=== PATIENT | female | born 1970 | race Caucasian/White ===

== ENCOUNTER 2017-01-18 13:09 | Emergency (ER) | payer OTHER ==
[~2017-01-18] VITALS: Ht 152.4 cm; Wt 62.0 kg
[~2017-01-18 13:09] MED LIST: ALPR1TAB2 PO; BUTA1CAP39 PO; CIPR500T4 PO; DIAZ-90 PO; HYDR-3720 PO; IBUP-1542 PO; MECL25TA2 PO; ONDA8TAB14 PO; PRED20TA PO
[2017-01-18 13:16] VITALS: Ht 152.4 cm; Wt 62.0 kg
[2017-01-18 13:57] LABS: URINE BLOOD (Dip) POC 1+ (NEGATIVE)
[2017-01-18] MEDS ORDERED: IBUPROFEN 600 MG TAB PO ONE (14:00)
[2017-01-18] MEDS ORDERED: ACETAMINOPHEN/CODEINE #3 TAB PO ONE (14:00)
[2017-01-18] MEDS ORDERED: CEPHALEXIN 500 MG CAP PO ONE (14:30)
[2017-01-18] MEDS ORDERED: HYDROCODONE/APAP (5/325) TAB PO ONE (14:30)
[2017-01-18] MEDS ORDERED: PHENAZOPYRIDINE 100 MG TAB PO ONE (14:30)
[2017-01-18] MEDS ORDERED: CEFTRIAXONE 500 MG INJ IM ONE (15:00)
[2017-01-18] MEDS ORDERED: LIDOCAINE 1% (MDV) 20 ML INJ SC ONE (15:00)
--- NOTE | 2017-01-18 15:36 | RADRPT ---
PROCEDURE: CT Abdomen and Pelvis without contrast. CLINICAL INDICATION: Abdominal and pelvic pain TECHNIQUE: CT scan of the abdomen and pelvis without contrast was performed without intravenous co ntrast. Coronal and sagittal reformatted images were obtained from the axial source images. Images were reviewed on a high-resolution PACS workstation. CTDI 7 mGy, DLP 388 mGy-cm One or more of the following dose reduction techniques were used: Automated exposure control Adjustment of the mA and/or kV according to patient size. Use of iterative reconstruction technique. COMPARISON: 01/24/2015 FINDINGS: There is minimal scarring within the right middle lobe anteriorly. Minimal bibasilar atelectasis is present. The lung bases are otherwise clear. The heart size is normal. There are pacer leads wit hin the region of the right atrium and right ventricle. The heart size is normal. The aorta and its branches are normal in size and caliber. Mild atherosclerotic calcifications are v isualized within the iliac arteries. There are several nonobstructive calculi within the superior and inferior poles of both kidneys norman uring up to 2 - 3 mm similar to the prior study. There is no hydronephrosis or perinephric fat stra nding. The kidneys are normal in size. There is a 1-2 mm focus of calcification within the right lo wer pelvis which may be within the right distal ureter near the ureterovesical junction on axial james ge 138 series 3 which is not visualized on the prior study. The distal portion of the right ureter is difficult to define. There are also several phleboliths within the pelvis which are visualized on the prior study. The left ureter is normal in course and caliber. Evaluation of solid organs is limited due to the lack of intravenous contrast. The liver is unremark able. The gallbladder, spleen, adrenal glands, and pancreas are unremarkable. The distal esophagus and stomach are unremarkable. The small bowel loops are normal in caliber with out evidence of small bowel obstruction. Stool is noted throughout the colon. There are also a few diverticula within the descending colon without evidence for diverticulitis. A mildly prominent ga s-filled appendix is again noted without surrounding fat stranding or fluid. There is no free intrap eritoneal fluid or pneumoperitoneum. There is no mesenteric, retroperitoneal, or pelvic lymphadenopathy. The bladder is distended, but grossly unremarkable. The uterus is not visualized from prior hysterec maris. The bilateral adnexa are unremarkable. There is no pelvic free fluid. There are no acute fractures. There is minimal left convex curvature of the lumbar spine. There ar e small cysts within the pubic bones at the pubic symphysis. RPTAT: ZZ IMPRESSION: 1. Several bilateral 2-3 mm nonobstructive renal calculi similar to the prior study without hydrone phrosis. 2. Punctate 1-2 mm calcification within the right lower pelvis which may be within the right distal ureter near the ureterovesical junction versus a new small phlebolith. No significant hydroureter. 3. Similar appearance of the mild gas-filled distension of the appendix without evidence for acute appendicitis. 4. Mild diverticulosis without evidence for diverticulitis. 5. Non-visualized uterus from prior hysterectomy. .Xiomara Mccrary MD, MD Date Time Electronically viewed and signed by .Xiomara Mccrary MD, on 01/18/2017 15:36 .T/
[2017-01-18] MEDS ORDERED: ACET1TAB40 PO (15:46)
[2017-01-18] MEDS ORDERED: PHEN-538 PO (15:46)
[2017-01-18] MEDS ORDERED: CEPH-443 PO (15:46)
--- NOTE | 2017-01-18 15:50 | ERD ---
ER Documentation Chief Complaint Date/Time DATE: 01/18/17 TIME: 15:48 Chief Complaint dysuria x 2 days; lower pelvic pain HPI This 46-year-old female complains of dysuria for last 2 days as well as suprapubic pelvic pain patient has right or left-sided abdominal pain. He denies any fevers, vomiting, flank pain ROS All systems reviewed and are negative except as per history of present illness. Medications Home Meds Active Scripts Acetaminophen with Codeine (Acetaminophen-Cod #3 Tablet) 1 Each Tablet, 1 TAB PO Q6H Y for PAIN, #7 TAB Prov:JEWELL SAPP MD 01/18/17 Phenazopyridine Hcl* (Pyridium*) 200 Mg Tab, 200 MG PO TID Y for URINARY PAIN, # 6 TAB Prov:JEWELL SAPP MD 01/18/17 Cephalexin* (Keflex*) 500 Mg Capsule, 500 MG PO QID for 5 Days, CAP Prov:JEWELL SAPP MD 01/18/17 Prednisone* (Prednisone*) 20 Mg Tab, 40 MG PO DAILY for 4 Days, TAB Prov:BRICE ENG PA-C 09/17/16 Ondansetron (Ondansetron Odt) 8 Mg Tab.rapdis, 8 MG PO Q6H Y for NAUSEA AND/OR VOMITING, #8 TAB Prov:JEWELL SAPP MD 06/16/16 Ibuprofen* (Motrin*) 600 Mg Tab, 600 MG PO Q6, #16 TAB Prov:JEWELL SAPP MD 06/16/16 Ciprofloxacin Hcl* (Ciprofloxacin Hcl*) 500 Mg Tablet, 500 MG PO BID for 7 Days , TAB Prov:JEWELL SAPP MD 06/16/16 Alprazolam* (Xanax*) 1 Mg Tab, 1 MG PO Q8H Y for ANXIETY, #20 TAB Prov:FARIDA DUNHAM NP 05/20/16 Qttwzibfenafo-Urlkvvoorc-Rnehwsym-Codeine* (Fioricet w/ Codeine*) [id number]- 30MG Capsule, 1 CAP PO Q6H Y for PAIN LEVEL 1-5, #20 CAP Prov:FARIDA DUNHAM NP 05/20/16 Diazepam* (Valium*) 5 Mg Tablet, 5 MG PO Q8 for dizzy, #10 TAB Prov:ARLINE RODRIGUEZ. DO 04/10/16 Hydrocodone Bit-Acetaminophen* (Esko*) 7.5-325 Tablet, 1 TAB PO Q4H Y for PAIN , #20 TAB Prov:ARLINE RODRIGUEZ. DO 04/10/16 Meclizine Hcl* (Antivert*) 25 Mg Tablet, 25 MG PO Q6H Y for DIZZINESS, #20 TAB Prov:ARLINE RODRIGUEZ A. DO 04/10/16 Reported Medications Ibuprofen* (Ibuprofen*) 600 Mg Tablet, 600 MG PO Q6H, TAB 04/10/16 Allergies Allergies: Coded Allergies: No Known Drug Allergies (Verified Allergy, Mild, 04/10/16) PMhx/Soc History of Surgery: Yes (Brain tumor removal, TABHSO, Pacemaker) Anesthesia Reaction: No Hx Neurological Disorder: No Hx Respiratory Disorders: No Hx Cardiac Disorders: Yes (Arrhythmia) Hx Psychiatric Problems: No Hx Miscellaneous Medical Probl: No Hx Alcohol Use: No Hx Substance Use: No Hx Tobacco Use: No Physical Exam Vitals Vital Signs Date Time Temp Pulse Resp B/P Pulse Ox O2 Delivery O2 Flow Rate FiO2 01/18/17 13:16 97.9 85 18 121/74 98 Physical Exam Const: [] Alert, uncomfortable due to pain Head: Atraumatic Eyes: Normal Conjunctiva ENT: Normal External Ears, Nose and Mouth. Neck: Full range of motion..~ No meningismus. Resp: Clear to auscultation bilaterally Cardio: Regular rate and rhythm, no murmurs Abd: Soft, mild suprapubic tenderness without tenderness at McBurney's point no Doe sign no rebound non distended. Normal bowel sounds Skin: No petechiae or rashes Back: No midline or flank tenderness Ext: No cyanosis, or edema Neur: Awake and alert Psych: Normal Mood and Affect Results 24 hrs Laboratory Tests Test 01/18/17 13:57 Bedside Urine pH (LAB) 5.5 Bedside Urine Protein (LAB) Negative Bedside Urine Glucose (UA) Negative Bedside Urine Ketones (LAB) Negative Bedside Urine Blood 1+ Bedside Urine Nitrite (LAB) Negative Bedside Urine Leukocyte Esterase (L 2+ Current Medications Medications (Trade) Dose Ordered Sig/Rodrick Route PRN Reason Start Time Stop Time Status Last Admin Dose Admin Ibuprofen (Motrin) 600 mg ONCE ONCE PO 01/18/17 14:00 01/18/17 14:01 DC 01/18/17 13:52 Acetaminophen/ Codeine Phosphate (Tylenol No.3) 1 tab ONCE ONCE PO 01/18/17 14:00 01/18/17 14:01 DC 01/18/17 13:52 Cephalexin (Keflex) 500 mg ONCE ONCE PO 01/18/17 14:30 01/18/17 14:31 DC 01/18/17 14:29 Phenazopyridine HCl (Pyridium) 200 mg ONCE ONCE PO 01/18/17 14:30 01/18/17 14:31 DC 01/18/17 14:29 Acetaminophen/ Hydrocodone Bitart ([place] (5/325)) 1 tab ONCE ONCE PO 01/18/17 14:30 01/18/17 14:31 DC 01/18/17 14:35 Ceftriaxone Sodium (Rocephin) 500 mg ONCE ONCE IM 01/18/17 15:00 01/18/17 15:01 DC 01/18/17 14:46 Lidocaine (Xylocaine 1% (Mdv) 20 ml) 20 ml ONCE ONCE SC 01/18/17 15:00 01/18/17 15:01 DC 01/18/17 14:46 Procedures/MDM Patient is positive leukocytes and hemoglobin in the urine. HCG is negative. Patient given Tylenol 3 and ibuprofen as well as Keflex and Pyridium. Patient was crying from suprapubic pain. Review of the record shows that patient has a history of undescended renal stones. Given the and certain cause of severe pain despite p.o. meds CT abdomen pelvis performed which shows similar undescended stones possible very small stone or phlebolith without hydronephrosis in the pelvis. Patient was given Esko 5 mg by mouth and Rocephin 500 mg IM during the ED course. Patient has no signs or symptoms of appendicitis, acute abdomen, obstruction, sepsis, pyelonephritis. I doubt septic stone. Patient did feel better after further observation and treatment and was urinating freely. CT did showed a large bladder suggesting possibly brief urinary retention with dysuria which is currently resolved as patient is able to urinate. Patient was discharged home with a short course of Pyridium, Keflex 10 #3 with instructions to return for fevers, vomiting, flank pain, worsening pain, new worsening symptoms. The patient was stable with no new complaints during the ER course. Clinically, there is no current evidence to suggest meningitis, sepsis, acute abdomen, pneumonia, acute coronary syndrome, pulmonary embolism, or any other emergent condition appearing to require further evaluation or hospitalization. The patient should certainly return for any new or worsening symptoms per the aftercare instructions. They should otherwise follow-up with her primary care doctor for reevaluation this week. Departure Diagnosis: Primary Impression: UTI (urinary tract infection) Urinary tract infection type: acute cystitis Hematuria presence: without hematuria Qualified Code: N30.00 - Acute cystitis without hematuria Condition: Stable Patient Instructions: Understanding Urinary Tract Infections (UTIs) Additional Instructions: Examines normal hoy. Cheque otro vez con [place] doctor primario en el proximo vigil or regresa para mas o nueva simptomas. JEWELL SAPP MD Jan 18, 2017 15:50
[2017-01-18 16:02] VITALS: BP 123/65; PULSE 64; RESP 18; TEMP 97.4
== END 2017-01-18 16:02 | disposition home or self-care (01) ==
LOC: FTE 13:09
DX: N30.00 Acute cystitis without hematuria (principal); Z95.0 Presence of cardiac pacemaker
CPT/HCPCS: 74176; 81003; 96372; J0696; Z7502; Z7610

== ENCOUNTER 2017-07-25 10:37 | Emergency (ER) | payer OTHER ==
[~2017-07-25] VITALS: Ht 154.9 cm; Wt 50.0 kg
[~2017-07-25 10:37] MED LIST changes: +ACET1TAB40 PO; +CEPH-443 PO; +PHEN-538 PO
[2017-07-25 10:39] VITALS: Ht 154.9 cm; Wt 50.0 kg
[2017-07-25] MEDS ORDERED: HYDROCODONE/APAP (10/325) TAB PO ONE (11:00)
[2017-07-25] MEDS ORDERED: ONDANSETRON (ODT) 4 MG TAB ODT ONE (11:00)
--- NOTE | 2017-07-25 11:45 | RADRPT ---
PROCEDURE: CT CERVICAL SPINE WITHOUT CONTRAST CLINICAL INDICATION: Trauma TECHNIQUE: CT scan of the cervical spine was performed. No IV contrast was administered. Coronal and sagittal reformatted images were obtained from the axial source images. Images were reviewed on a high-resolution PACS workstation. Dose report: Total exam DLP: 461 mGy-cm. CDTIvol = 22 mGy. One or more of the following dose reduction techniques were used: Automated exposure control Adjustment of the mA and/or kV according to patient size. Use of iterative reconstruction technique. COMPARISON: None FINDINGS: Vertebral body heights are preserved. There are no acute fractures. Slight straightening of the norm al cervical lordosis is present. The craniocervical junction is intact. Postsurgical changes of prior right suboccipital craniotomy a re noted - please see CT brain for additional details. The C1-C2 articulation is intact with osseous spurring anteriorly. The prevertebral soft tissues are within normal limits. Paraspinal musculature is unremarkable. Findings at specific disc levels: C2-3: Normal disc height. No central canal or neural foraminal narrowing. C3-4: Normal disc height. Minimal annular bulge without central canal or neural foraminal narrowing. C4-5: Normal disc height. Minimal annular bulge but no central canal or neural foramen narrowing. C5-6: Normal disc height. Very small anterior endplate osteophytes. Minimal annular bulge and quality lead ior osseous ridging but no central canal or neural foraminal narrowing. C6-7: Normal disc height with very small anterior endplate osteophytes. No central canal or neural f oramen narrowing. C7-T1: Normal disc height. No central canal or neural foraminal narrowing. There is minimal scarring within the right lung apex. RPTAT: EE IMPRESSION: No acute fracture or significant malalignment of the cervical spine. .Xiomara Mccrary MD, Date Time Electronically viewed and signed by .Xiomara Mccrary MD, on 07/25/2017 11:50 .T/
--- NOTE | 2017-07-25 11:52 | RADRPT ---
PROCEDURE: CT Brain without contrast. CLINICAL INDICATION: Trauma. TECHNIQUE: A CT of the brain was performed on a [employer] CT scanner utilizi ng a low dose technique with axial imaging from the skull base through the vertex without IV contras t. Multiplanar reformatted images were made. Images were reviewed on a PACS workstation. The CTDI vol is 45 mGy and the DLP is 720 mGycm. One or more of the following dose reduction techniques were used: - Automated exposure control. - Adjustment of the mA and/or kV according to patient size. Use of iterative reconstruction technique. COMPARISON: CT scan of the brain 05/20/2016. FINDINGS: Portions of the right and left occipital bones were removed. There is a pseudomeningocele from earli er surgery adjacent to the occipital craniectomy site which is unchanged. The fourth ventricle is no rmal in size. The third and lateral ventricles are normal in size and configuration. There is encep halomalacia related to surgery in the dorsal right cerebellar hemisphere. The remaining portions of the brain parenchyma are normal. The visible portions of the globes and extraocular muscles are normal. The paranasal sinuses are cl ear. The mastoid air cells and internal auditory canals are normal. IMPRESSION: 1. Status post right occipital craniectomy with stable right pseudomeningocele as compared to 05/20. 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 Otherwise, negative CT scan of the brain performed without IV contrast. 3. No intracranial hemorrhage or acute bony fracture is noted. 4. Findings were phoned to Dr. Almanzar in the emergency room at 11:51 a.m. to ensure proper follow-up care of the patient. RPTAT:AAJJ Physician Katharina Date Time Electronically viewed and signed by Physician Katharina on 07/25/2017 11:52 HERBERT/
--- NOTE | 2017-07-25 12:29 | ERD ---
ER Documentation Chief Complaint Date/Time DATE: 07/25/17 TIME: 12:26 Chief Complaint bibr 875 sp possible ko after hitting head on bed, perrla, normal neuro HPI This is a 46-year-old female who presents to the emergency room via EMS. The patient does have a history of a pacemaker and prior encephalopathy. The patient was walking from the bathroom and states that she hit her forehead on a bunk bed. Is unsure if she lost consciousness. She is describing diffuse frontal forehead pain that is 8 out of 10 with associated paraspinal bilateral neck pain. The patient is tearful upon arrival. She denies any prodrome of chest pain or shortness breath no nausea or vomiting no occipital hematoma, no anticoagulants. ROS All systems reviewed and are negative except as per history of present illness. Medications Home Meds Active Scripts Acetaminophen with Codeine (Acetaminophen-Cod #3 Tablet) 1 Each Tablet, 1 TAB PO Q6H Y for PAIN, #7 TAB Prov:JEWELL SAPP MD 01/18/17 Phenazopyridine Hcl* (Pyridium*) 200 Mg Tab, 200 MG PO TID Y for URINARY PAIN, # 6 TAB Prov:JEWELL SAPP MD 01/18/17 Cephalexin* (Keflex*) 500 Mg Capsule, 500 MG PO QID for 5 Days, CAP Prov:JEWELL SAPP MD 01/18/17 Prednisone* (Prednisone*) 20 Mg Tab, 40 MG PO DAILY for 4 Days, TAB Prov:BRICE ENG PA-C 09/17/16 Ondansetron (Ondansetron Odt) 8 Mg Tab.rapdis, 8 MG PO Q6H Y for NAUSEA AND/OR VOMITING, #8 TAB Prov:JEWELL SAPP MD 06/16/16 Ibuprofen* (Motrin*) 600 Mg Tab, 600 MG PO Q6, #16 TAB Prov:JEWELL SAPP MD 06/16/16 Ciprofloxacin Hcl* (Ciprofloxacin Hcl*) 500 Mg Tablet, 500 MG PO BID for 7 Days , TAB Prov:JEWELL SAPP MD 06/16/16 Alprazolam* (Xanax*) 1 Mg Tab, 1 MG PO Q8H Y for ANXIETY, #20 TAB Prov:FARIDA DUNHAM NP 05/20/16 Umamhtdbigepn-Udnpcsfhfw-Hmfbkbxd-Codeine* (Fioricet w/ Codeine*) [id number]- 30MG Capsule, 1 CAP PO Q6H Y for PAIN LEVEL 1-5, #20 CAP Prov:FARIDA DUNHAM [employer] MA[employer]GER 05/20/16 Diazepam* (Valium*) 5 Mg Tablet, 5 MG PO Q8 for dizzy, #10 TAB Prov:CODYOSKANDISTOLOS A. DO 04/10/16 Hydrocodone Bit-Acetaminophen* ([place]*) 7.5-325 Tablet, 1 TAB PO Q4H Y for PAIN , #20 TAB Prov:LEKKOSAPOSTOLOS A. DO 04/10/16 Meclizine Hcl* (Antivert*) 25 Mg Tablet, 25 MG PO Q6H Y for DIZZINESS, #20 TAB Prov:LEKKOSAPOSTOLOS A. DO 04/10/16 Reported Medications Ibuprofen* (Ibuprofen*) 600 Mg Tablet, 600 MG PO Q6H, TAB 04/10/16 Allergies Allergies: Coded Allergies: No Known Drug Allergies (Verified Allergy, Mild, 04/10/16) PMhx/Soc History of Surgery: Yes (Brain tumor removal, TABHSO, Pacemaker) Anesthesia Reaction: No Hx Neurological Disorder: No Hx Respiratory Disorders: No Hx Cardiac Disorders: Yes (Arrhythmia) Hx Psychiatric Problems: No Hx Miscellaneous Medical Probl: No Hx Alcohol Use: No Hx Substance Use: No Hx Tobacco Use: No Smoking Status: Never smoker FmHx Family History: No diabetes Physical Exam Vitals Vital Signs Date Time Temp Pulse Resp B/P Pulse Ox O2 Delivery O2 Flow Rate FiO2 07/25/17 10:39 98.6 87 18 118/71 99 Physical Exam Airway is intact Bilateral breath sounds Strong distal pulses No obvious deficits General: Well developed, well nourished, no acute distress Head: Normocephalic, atraumatic Eyes: Pupils equally reactive, EOM intact ENT: Moist mucous membranes Neck: Supple, no lymphadenopathy, No midline tenderness, deformities, step-offs to the cervical spine, full active and passive range of motion without midline pain. However, the patient has diffuse paraspinal soft tissue tenderness along the neck Respiratory: Lungs clear bilaterally, no distress, no chest wall tenderness, no crepitus Cardiovascular: RRR, no murmurs, rubs, or gallops Abdominal: Soft, non-tender, non-distended, no peritoneal signs, pelvis is stable : Deferred MSK: No edema, no unilateral swelling, 5/5 strength, no midline tenderness deformities or step-offs to the thoracolumbar spine Neurologic: Alert and oriented, moving all extremities, normal speech, no focal weakness, no cerebellar signs Skin: No ecchymoses or bruising to the chest or abdomen Psych: Tearful Results 24 hrs Current Medications Medications (Trade) Dose Ordered Sig/Rodrick Route PRN Reason Start Time Stop Time Status Last Admin Dose Admin Ondansetron HCl (Zofran Odt) 4 mg ONCE ONCE ODT 07/25/17 11:00 07/25/17 11:01 DC 07/25/17 10:57 Acetaminophen/ Hydrocodone Bitart ([place] (10/325)) 1 tab ONCE ONCE PO 07/25/17 11:00 07/25/17 11:01 DC 07/25/17 10:57 Procedures/MDM EKG, MONITORS, & DIAGNOSTIC IMAGING: CT brain: IMPRESSION: 1. Status post right occipital craniectomy with stable right pseudomeningocele as compared to 05/20/2016. 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 Otherwise, negative CT scan of the brain performed without IV contrast. 3. No intracranial hemorrhage or acute bony fracture is noted. 4. Findings were phoned to Dr. Almanzar in the emergency room at 11:51 a.m. to ensure proper follow-up care of the patient. RPTAT:AAJJ CT cervical spine: No evidence of acute C-spine injury. Radiology read MEDICAL DECISION MAKING: The patient presents with closed head injury with possible loss of consciousness and diffuse neck pain. The mechanism seems minimal but the patient is extremely tearful. Consider some behavioral component. However, the patient does have complicated history prompting CT imaging of the brain and cervical spine. ER COURSE: Patient was given pain control medication. The patient had CT imaging of the head and cervical spine that is unchanged from baseline. The patient's symptoms are improved. At this point I feel she can be safely discharged home with close head injury precautions. I kept the patient and/or family informed of laboratory and diagnostic imaging results throughout the emergency room course. DISPOSITION PLAN: We discussed follow up with the patient's primary care doctor within 24 to 48 hours as needed. We also discussed return to the emergency room for worsening symptoms or worsening condition. Outpatient referral: [None required] Discharge Medications: None required Departure Diagnosis: Primary Impression: Closed head injury Encounter type: initial encounter Qualified Code: S09.90XA - Closed head injury, initial encounter Additional Impression: Cervical muscle strain Encounter type: initial encounter Qualified Code: S16.1XXA - Strain of neck muscle, initial encounter Condition: Stable Patient Instructions: Whiplash, HEAD INJURY, No Wake-Up (Adult) Additional Instructions: Call your primary care doctor TOMORROW for an appointment during the next 1 WEEK.Tell the secretary bookkeeper that you were referred from this facility.See the doctor sooner or return here if your condition worsens before your appointment time. JASON ALMANZAR MD Jul 25, 2017 12:29
[2017-07-25 12:39] VITALS: BP 117/81; PULSE 62; RESP 20
[2017-07-25] MEDS ORDERED: ONDANSETRON (ODT) 4 MG TAB ODT STA (13:20)
== END 2017-07-25 13:27 | disposition home or self-care (01) ==
LOC: E/R 10:37
DX: S09.90XA Unspecified injury of head, initial encounter (principal); S16.1XXA Strain of muscle, fascia and tendon at neck level, initial encounter; R40.2142 Coma scale, eyes open, spontaneous, at arrival to emergency department; R40.2252 Coma scale, best verbal response, oriented, at arrival to emergency department; R40.2362 Coma scale, best motor response, obeys commands, at arrival to emergency department; R51 Headache; W22.8XXA Striking against or struck by other objects, initial encounter; Y92.89 Other specified places as the place of occurrence of the external cause; Z95.0 Presence of cardiac pacemaker
CPT/HCPCS: 70450; 72125; Z7502; Z7610

== ENCOUNTER 2019-01-18 16:25 | Emergency (ER) | payer OTHER ==
[~2019-01-18] VITALS: Ht 142.2 cm; Wt 63.2 kg
[~2019-01-18 16:25] MED LIST changes: -DIAZ-90 PO; +DIAZ5TAB PO
[2019-01-18 16:26] VITALS: BP 132/79; PULSE 84; RESP 18; Ht 142.2 cm; Wt 63.2 kg
[2019-01-18] MEDS ORDERED: KETOROLAC 30 MG INJ IM STA (17:29)
[2019-01-18] MEDS ORDERED: ALBU18HF INHALATION (18:36)
[2019-01-18] MEDS ORDERED: D-ME118S24 PO (18:36)
--- NOTE | 2019-01-18 18:40 | ERD ---
ER Documentation Chief Complaint Chief Complaint SORE THROAT, COUGH AND CONGESTIOIN HPI 48-year-old female presents for sore throat and cough times 1 week. She has seen her primary care physician for similar symptoms and has been given Robitussin and some other medication which she does not remember and states that it has been helping. Cough is nonproductive. Also has headache. States he had fever last night. She is been taking Tylenol and Motrin with some relief however she states that the fever returned at times. She has a past medical history of a pacemaker for bradycardia heart and brain tumor surgery for cancer in 1998. ROS All systems reviewed and are negative except as per history of present illness. Medications Home Meds Active Scripts Albuterol Sulfate* (Ventolin HFA*) 18 Gm Hfa.aer.ad, 2 PUFF INHALATION Q4H PRN for cough/shortness of breath, #1 INHALER Prov:LYDIA DE LA ROSA DO 01/18/19 D-Methorphan Hb/P-Epd HCl/Bpm (Xoekcpaset-Kxejwjohden-Lw Syr) 118 Ml Syrup, 5 ML PO Q4H PRN for COUGH for 10 Days, #10 BOTTLE Prov:LYDIA DE LA ROSA DO 01/18/19 Acetaminophen with Codeine (Acetaminophen-Cod #3 Tablet) 1 Each Tablet, 1 TAB PO Q6H PRN for PAIN, #7 TAB Prov:JEWELL SAPP MD 01/18/17 Phenazopyridine Hcl* (Pyridium*) 200 Mg Tab, 200 MG PO TID PRN for URINARY PAIN, #6 TAB Prov:JEWELL SAPP MD 01/18/17 Cephalexin* (Keflex*) 500 Mg Capsule, 500 MG PO QID for 5 Days, CAP Prov:JEWELL SAPP MD 01/18/17 Prednisone* (Prednisone*) 20 Mg Tab, 40 MG PO DAILY for 4 Days, TAB Prov:BRICE ENG PA-C 09/17/16 Ondansetron (Ondansetron Odt) 8 Mg Tab.rapdis, 8 MG PO Q6H PRN for NAUSEA AND/OR VOMITING, #8 TAB Prov:JEWELL SAPP MD 06/16/16 Ibuprofen* (Motrin*) 600 Mg Tab, 600 MG PO Q6, #16 TAB Prov:JEWELL SAPP MD 06/16/16 Ciprofloxacin Hcl* (Ciprofloxacin Hcl*) 500 Mg Tablet, 500 MG PO BID for 7 Days, TAB Prov:JEWELL SAPP MD 06/16/16 Alprazolam* (Xanax*) 1 Mg Tab, 1 MG PO Q8H PRN for ANXIETY, #20 TAB Prov:FARIDA DUNHAM NP 05/20/16 Bialggdwvphhu-Awkwglcimo-Nnjspvti-Codeine* (Fioricet w/ Codeine*) [id number] Capsule, 1 CAP PO Q6H PRN for PAIN LEVEL 1-5, #20 CAP Prov:FARIDA DUNHAM HOUSEHOLD MANAGER 05/20/16 Diazepam* (Valium*) 5 Mg Tablet, 5 MG PO Q8 for dizzy, #10 TAB Prov:KANDI RODRIGUEZSTKALAS Alessandro DO 04/10/16 Hydrocodone Bit-Acetaminophen* ([place]*) 7.5-325 Tablet, 1 TAB PO Q4H PRN for PAIN, #20 TAB Prov:JERAMIE RODRIGUEZS Alessandro DO 04/10/16 Meclizine Hcl* (Antivert*) 25 Mg Tablet, 25 MG PO Q6H PRN for DIZZINESS, #20 TAB Prov:KANDI RODRIGUEZSTKALAS ADieudonne DO 04/10/16 Reported Medications Ibuprofen* (Ibuprofen*) 600 Mg Tablet, 600 MG PO Q6H, TAB 04/10/16 Allergies Allergies: Coded Allergies: No Known Drug Allergies (Verified Allergy, Mild, 04/10/16) PMhx/Soc History of Surgery: Yes (Brain tumor removal, TABHSO, Pacemaker) Anesthesia Reaction: No Hx Neurological Disorder: No Hx Respiratory Disorders: No Hx Cardiac Disorders: Yes (Arrhythmia) Hx Psychiatric Problems: No Hx Miscellaneous Medical Probl: No Hx Alcohol Use: No Hx Substance Use: No Hx Tobacco Use: No Smoking Status: Never smoker Physical Exam Vitals Vital Signs Date Temp Pulse Resp B/P (MAP) Pulse Ox O2 O2 Flow FiO2 Time Delivery Rate 01/18/19 98.7 84 18 132/79 99 16:26 (96) Physical Exam Const: No acute distress Head: Atraumatic Eyes: Normal Conjunctiva ENT: Normal External Ears, bilateral tympanic membrane intact without erythema or bulging noted, nose and Mouth examination normal, no tonsillar swelling or exudate noted Neck: Full range of motion. No meningismus. Resp: Clear to auscultation bilaterally, no wheezing, rales, rhonchi Cardio: Regular rate and rhythm, no murmurs Skin: No petechiae or rashes Ext: No cyanosis, or edema Neur: Awake and alert Psych: Normal Mood and Affect Results 24 hrs Laboratory Tests Test 01/18/19 17:58 POC Beta HCG, Qualitative NEGATIVE Current Medications Medications Dose Sig/Rodrick Start Time Status Last (Trade) Ordered Route PRN Stop Time Admin Dose Reason Admin Ketorolac 30 mg ONCE STAT 01/18/19 DC 01/18/19 Tromethamine IM 17:29 01/18/19 18:16 (Toradol) 17:30 Procedures/MDM Medical Decision Making: Differential diagnosis includes but not limited to upper respiratory infection, pneumonia, sepsis, meningitis, influenza. Patient appeared well on physical examination, nontoxic appearing. Lungs were clear to auscultation bilaterally. There is low suspicion for pneumonia, sepsis, meningitis. chest X-ray done given history of brain cancer Chest X-ray 1V Interpreted by me: Soft Tissue: No acute abnormalities Bones: No acute abnormalities Mediastinum/Cardiac Silhouette/Lungs: No acute abnormalities Patient likely has an upper respiratory infection, likely viral. Therefore antibiotics not indicated. Discussed symptomatic treatment with patient who agrees with plan. Patient given prescription for supportive medication(s). Patient advised to follow up with PCP in 1-2 days. Patient advised to return to ED for new or worsening symptoms. Patient stable on discharge from the ED. Disclaimer: Inadvertent spelling and grammatical errors are likely due to EHR/dictation software use and do not reflect on the overall quality of patient care. Also, please note that the electronic time recorded on this note does not necessarily reflect the actual time of the patient encounter. Departure Diagnosis: Primary Impression: URI (upper respiratory infection) Condition: Fair Patient Instructions: Preventing Common Respiratory Infections Referrals: COMMUNITY CLINICS YOU HAVE RECEIVED A MEDICAL SCREENING EXAM AND THE RESULTS INDICATE THAT YOU DO NOT HAVE A CONDITION THAT REQUIRES URGENT TREATMENT IN THE EMERGENCY DEPARTMENT. FURTHER EVALUATION AND TREATMENT OF YOUR CONDITION CAN WAIT UNTIL YOU ARE SEEN IN YOUR DOCTORS OFFICE WITHIN THE NEXT 1-2 DAYS. IT IS YOUR RESPONSIBILITY TO MAKE AN APPOINTMENT FOR FOLOW-UP CARE. IF YOU HAVE A PRIMARY DOCTOR --you should call your primary doctor and schedule an appointment IF YOU DO NOT HAVE A PRIMARY DOCTOR YOU CAN CALL OUR PHYSICIAN REFERRAL HOTLINE AT IF YOU CAN NOT AFFORD TO SEE A PHYSICIAN YOU CAN CHOSE FROM THE FOLLOWING [facility] CL[facility] [address] [facility] [address] [facility] [address] [facility] [address] [facility] [address] [facility]. [facility]. [address] Additional Instructions: Llame al doctor MAANA y maxim latasha WIL PARA DENTRO DE 1-2 SPANGLER.Dgale a la secretaria que nosotros le instruimos hacer esta wil.Avise o llame si [place] condi andrés se empeora antes de la wil. Regresa aqui si peor o no mejor. LYDIA DE LA ROSA DO Jan 18, 2019 18:40
== END 2019-01-18 19:34 | disposition home or self-care (01) ==
LOC: FTE 16:25
DX: J06.9 Acute upper respiratory infection, unspecified (principal); Z85.841 Personal history of malignant neoplasm of brain; Z95.0 Presence of cardiac pacemaker
CPT/HCPCS: 71046; 81025; 96372; J1885; Z7502

== ENCOUNTER 2019-03-30 15:30 | Emergency (ER) | payer OTHER ==
[~2019-03-30] VITALS: Ht 152.4 cm; Wt 64.0 kg
[~2019-03-30 15:30] MED LIST changes: +ALBU18HF INHALATION; +D-ME118S24 PO
[2019-03-30 15:44] VITALS: BP 115/68; PULSE 64; RESP 18; Ht 152.4 cm; Wt 64.0 kg
[2019-03-30] MEDS ORDERED: KETOROLAC 15 MG INJ IM STA (16:03)
[2019-03-30] MEDS ORDERED: IBUP-1542 PO (16:05)
[2019-03-30] MEDS ORDERED: BACL10TA PO (16:05)
--- NOTE | 2019-03-30 16:23 | ERD ---
ER Documentation Chief Complaint Chief Complaint back pain x 3 days HPI Patient is a 48-year-old female with past medical history of brain surgery, pacemaker placement secondary to arrhythmia, who presents the ER for concerns of right lower back pain x3 days. Patient denies any falls or trauma. Patient states she been taking ibuprofen with no alleviation of symptoms. Last dose of ibuprofen yesterday. Patient denies any saddle seizure, urine incontinence or stool incontinence. Patient denies any dysuria, urgency or hematuria. She denies any chest pain or shortness of breath. Patient denies any abdominal pain. ROS All systems reviewed and are negative except as per history of present illness. Medications Home Meds Active Scripts Baclofen* (Baclofen*) 10 Mg Tablet, 10 MG PO Q8, #20 TAB Prov:ADONIS FORRESTER PA-C 03/30/19 Ibuprofen* (Motrin*) 600 Mg Tab, 600 MG PO Q6, #30 TAB Prov:ADONIS FORRESTER PA-C 03/30/19 Albuterol Sulfate* (Ventolin HFA*) 18 Gm Hfa.aer.ad, 2 PUFF INHALATION Q4H PRN for cough/shortness of breath, #1 INHALER Prov:LYDIA DE LA ROSA DO 01/18/19 D-Methorphan Hb/P-Epd HCl/Bpm (Wnllxtgzow-Jvnyzxolvfh-Js Syr) 118 Ml Syrup, 5 ML PO Q4H PRN for COUGH for 10 Days, #10 BOTTLE Prov:LYDIA DE LA ROSA DO 01/18/19 Acetaminophen with Codeine (Acetaminophen-Cod #3 Tablet) 1 Each Tablet, 1 TAB PO Q6H PRN for PAIN, #7 TAB Prov:JEWELL SAPP MD 01/18/17 Phenazopyridine Hcl* (Pyridium*) 200 Mg Tab, 200 MG PO TID PRN for URINARY PAIN, #6 TAB Prov:JEWELL SAPP MD 01/18/17 Cephalexin* (Keflex*) 500 Mg Capsule, 500 MG PO QID for 5 Days, CAP Prov:JEWELL SAPP MD 01/18/17 Prednisone* (Prednisone*) 20 Mg Tab, 40 MG PO DAILY for 4 Days, TAB Prov:BRICE ENG PA-C 09/17/16 Ondansetron (Ondansetron Odt) 8 Mg Tab.rapdis, 8 MG PO Q6H PRN for NAUSEA AND/OR VOMITING, #8 TAB Prov:JEWELL SAPP MD 06/16/16 Ibuprofen* (Motrin*) 600 Mg Tab, 600 MG PO Q6, #16 TAB Prov:JEWELL SAPP MD 06/16/16 Ciprofloxacin Hcl* (Ciprofloxacin Hcl*) 500 Mg Tablet, 500 MG PO BID for 7 Days, TAB Prov:JEWELL SAPP MD 06/16/16 Alprazolam* (Xanax*) 1 Mg Tab, 1 MG PO Q8H PRN for ANXIETY, #20 TAB Prov:FARIDA DUNHAM NP 05/20/16 Brraudtdgazvc-Bvflsxslec-Britgrxu-Codeine* (Fioricet w/ Codeine*) [id number] Capsule, 1 CAP PO Q6H PRN for PAIN LEVEL 1-5, #20 CAP Prov:FARIDA DUNHAM NP 05/20/16 Diazepam* (Valium*) 5 Mg Tablet, 5 MG PO Q8 for dizzy, #10 TAB Prov:KANDI RODRIGUEZSTARMAAN Francois DO 04/10/16 Hydrocodone Bit-Acetaminophen* ([place]*) 7.5-325 Tablet, 1 TAB PO Q4H PRN for PAIN, #20 TAB Prov:KANDI RODRIGUEZSTOLOS ADieudonne DO 04/10/16 Meclizine Hcl* (Antivert*) 25 Mg Tablet, 25 MG PO Q6H PRN for DIZZINESS, #20 TAB Prov:KANDI RODRIGUEZSTOLOS Alessandro DO 04/10/16 Reported Medications Ibuprofen* (Ibuprofen*) 600 Mg Tablet, 600 MG PO Q6H, TAB 04/10/16 Allergies Allergies: Coded Allergies: No Known Drug Allergies (Verified Allergy, Mild, 04/10/16) PMhx/Soc History of Surgery: Yes (Brain tumor removal, TABHSO, Pacemaker) Anesthesia Reaction: No Hx Neurological Disorder: No Hx Respiratory Disorders: No Hx Cardiac Disorders: Yes (Arrhythmia) Hx Psychiatric Problems: No Hx Miscellaneous Medical Probl: No Hx Alcohol Use: No Hx Substance Use: No Hx Tobacco Use: No Smoking Status: Never smoker FmHx Family History: No diabetes Physical Exam Vitals Vital Signs Date Temp Pulse Resp B/P (MAP) Pulse Ox O2 O2 Flow FiO2 Time Delivery Rate 03/30/19 98.2 64 18 115/68 97 15:44 (84) Physical Exam GENERAL: Well-developed, well-nourished female. Appears in no acute distress. HEAD: Normocephalic, atraumatic. EYES: Pupils are equally reactive bilaterally. EOMs grossly intact. No conjunctival erythema. ENT: Moist mucous membranes. No uvula deviation. No kissing tonsils. NECK: Supple. No meningismus. Normal range of motion of the neck. LUNG: Clear to auscultation bilaterally. No rhonchi, wheezing, rales or coarse breath sounds. HEART: Regular rate and rhythm. No murmurs, rubs or gallops. Equal pulses in bilateral upper extremities. ABDOMEN:. Soft, nontender, and nondistended. Positive bowel sounds in all four quadrants. No rebound tenderness, no guarding. (-) McBurney's point tenderness. No CVA tenderness. BACK: No midline tenderness. Tender to palpation in the right lumbar paraspinal muscles. EXTREMITIES: Equal pulses bilaterally. No peripheral clubbing, cyanosis or edema. No unilateral leg swelling. NEUROLOGIC: Alert and oriented. Moving all four extremities without any difficulty. Normal speech. Steady gait. SKIN: Normal color. Warm and dry. No rashes or lesions. Results 24 hrs Current Medications Medications Dose Sig/Rodrick Start Time Status Last (Trade) Ordered Route PRN Stop Time Admin Dose Reason Admin Ketorolac 15 mg ONCE STAT 03/30/19 DC Tromethamine IM 16:03 (Toradol) 03/30/19 16:04 Procedures/MDM MEDICAL DECISION MAKING: This is a 48-year-old female presents the ER for concerns of lower back pain x3 days.. Vital signs were reviewed. Patient was afebrile. Patient denied any saddle anesthesia, urinary incontinence, bowel incontinence, night pain or recent trauma. Patient denied any falls or trauma. No indication for x-ray imaging at this time. Patient's pain is likely due to muscle spasms and lumbar strain. Patient was given Toradol 15 mg IM and will be discharged home with prescription for baclofen. Patient advised not to take this medication when driving or operating any machinery. Low suspicion for cauda equine syndrome, spinal fractures, epidural abscess, spinal metastases, osteomyelitis, aortic dissection, ruptured or leaking AA, DJD, pyelonephritis or nephrolithiasis. PRESCRIPTIONS: Ibuprofen Baclofen DISCHARGE: At this time, patient is stable for discharge and outpatient management. RICE therapy and ROM exercises were advised to avoid stiffness. I have instructed the patient to follow-up with his/her primary care physician in 1-2 days. I have discussed with the patient the possibility of needing to see an job service specialist for further workup and imaging if the pain persists. I have instructed the patient to promptly return to the ER for any new or worsening symptoms including increased pain, swelling, warmth, urinary incontinence, stool incontinence, weakness or numbness. The patient and/or family expressed understanding of and agreement with this plan. All questions were answered. Home care instructions were provided. Disclaimer: Inadvertent spelling and grammatical errors are likely due to EHR/dictation software use and do not reflect on the overall quality of patient care. Also, please note that the electronic time recorded on this note does not necessarily reflect the actual time of the patient encounter. Departure Diagnosis: Primary Impression: Lower back pain Chronicity: acute Back pain laterality: right Sciatica presence: unspecified whether sciatica present Qualified Codes: M54.5 - Low back pain Condition: Fair Patient Instructions: Back Pain (Acute Or Chronic) Referrals: [facility] YOU HAVE RECEIVED A MEDICAL SCREENING EXAM AND THE RESULTS INDICATE THAT YOU DO NOT HAVE A CONDITION THAT REQUIRES URGENT TREATMENT IN THE EMERGENCY DEPARTMENT. FURTHER EVALUATION AND TREATMENT OF YOUR CONDITION CAN WAIT UNTIL YOU ARE SEEN IN YOUR DOCTORS OFFICE WITHIN THE NEXT 1-2 DAYS. IT IS YOUR RESPONSIBILITY TO MAKE AN APPOINTMENT FOR FOLOW-UP CARE. IF YOU HAVE A PRIMARY DOCTOR --you should call your primary doctor and schedule an appointment IF YOU DO NOT HAVE A PRIMARY DOCTOR YOU CAN CALL OUR PHYSICIAN REFERRAL HOTLINE AT IF YOU CAN NOT AFFORD TO SEE A PHYSICIAN YOU CAN CHOSE FROM THE FOLLOWING [facility] [address] [facility] [address] [facility] [address] [facility] [address] [facility] [address] [facility]. [facility] [address] [facility]. [facility] YOU HAVE RECEIVED A MEDICAL SCREENING EXAM AND THE RESULTS INDICATE THAT YOU DO NOT HAVE A CONDITION THAT REQUIRES URGENT TREATMENT IN THE EMERGENCY DEPARTMENT. FURTHER EVALUATION AND TREATMENT OF YOUR CONDITION CAN WAIT UNTIL YOU ARE SEEN IN YOUR DOCTORS OFFICE WITHIN THE NEXT 1-2 DAYS. IT IS YOUR RESPONSIBILITY TO MAKE AN APPOINTMENT FOR FOLOW-UP CARE. IF YOU HAVE A PRIMARY DOCTOR --you should call your primary doctor and schedule and appointment IF YOU DO NOT HAVE A PRIMARY DOCTOR YOU CAN CALL OUR PHYSICIAN REFERRAL HOTLINE AT . IF YOU CAN NOT AFFORD TO SEE A PHYSICIAN YOU CAN CHOSE FROM THE FOLLOWING [facility] INSTITUTIONS: [facility] [address] [place] [address] [facility] [address] [place] [address] [facility] [address] [place] [address] Additional Instructions: Call your primary care doctor TOMORROW for an appointment during the next 1-2 days.See the doctor sooner or return here if your condition worsens before your appointment time. ADONIS FORRESTER PA-C Mar 30, 2019 16:23
== END 2019-03-30 16:38 | disposition short-term general hospital (02) ==
LOC: FTE 15:30
DX: M54.5 Low back pain (principal); Z95.0 Presence of cardiac pacemaker
CPT/HCPCS: 81025; 96372; J1885; Z7502

== ENCOUNTER 2019-07-12 20:47 | Emergency (ER) | payer OTHER ==
[~2019-07-12] VITALS: Ht 152.4 cm; Wt 65.2 kg
[~2019-07-12 20:47] MED LIST changes: +BACL10TA PO; +CALAMINE TOP; +IBUP-1544 PO; +MELO15TA30 ORAL; +OMEP40CA38 ORAL; +ONDA4TAB14 PO; +OXYC-279 PO; +PHEN-537 PO
[2019-07-12 20:50] VITALS: Ht 152.4 cm; Wt 65.2 kg
[2019-07-12] MEDS ORDERED: ONDANSETRON 4 MG INJ IV STA (21:25)
[2019-07-12] MEDS ORDERED: SOD CHLORIDE 0.9% 500 ML IV STA (21:25)
[2019-07-12] MEDS ORDERED: morphine 4 MG/ML VIAL IV STA (21:25)
[2019-07-12] MEDS ORDERED: DIPHENHYDRAMINE 50 MG INJ IV ONE (21:30)
[2019-07-12 22:37] VITALS: BP 141/76; PULSE 61; RESP 18
== END 2019-07-12 22:57 | disposition home or self-care (01) ==
LOC: E/R 20:47
DX: S80.861A Insect bite (nonvenomous), right lower leg, initial encounter (principal); S80.862A Insect bite (nonvenomous), left lower leg, initial encounter; G44.209 Tension-type headache, unspecified, not intractable; R42 Dizziness and giddiness; W57.XXXA Bitten or stung by nonvenomous insect and other nonvenomous arthropods, initial encounter; Y92.9 Unspecified place or not applicable
CPT/HCPCS: 36415; 80048; 81003; 85025; 93005; 96374; 96375; J1200; J2270; J2405; J7040; Z7502